=== PATIENT | female | born 1970 | race Caucasian/White ===

== ENCOUNTER 2018-05-28 11:31 | Emergency (ER) | payer BC ==
[2018-05-28] MEDS ORDERED: predniSONE 50 MG TAB PO STA (12:08)
[2018-05-28] MEDS ORDERED: MORPHINE SULFATE 4 MG/ML SYRINGE IM STA (12:08)
--- NOTE | 2018-05-28 12:17 | ED ---
General Adult HPI - General Chief complaint: Back Pain/Injury Stated complaint: back pain Time Seen by Provider: 05/28/18 11:54 Source: patient, RN notes reviewed, old records reviewed Mode of arrival: ambulatory Limitations: no limitations - History of Present Illness Initial comments: 48-year-old female patient with past medical history of chronic lumbar back pain presents to ED with approximately 4 day exacerbation of lumbar back pain. Pt reports that she was walking when she began increasing pain in her right paralumbar region pt states pain radiates down her posterior leg. Patient states that this feels similar to her back pain in the past. Patient denies any recent falls or trauma, patient able to ambulate without difficulty, denies any loss of bowel and bladder control. Patient has taken Tylenol at home without relief of symptoms. [facility] and attempted to make an appointment with her primary care physician, however was unable to today. Patient presents today primarily for symptomatic relief. Patient denies other complaints. Patient states that she is not . Systemic: Pt denies fatigue, fever/chills, rash. Pt denies weakness, night sweats, weight loss. Neuro: Pt denies headache, visual disturbances, syncope or pre-syncope. HEENT: Pt denies ocular discharge or irritation, otalgia, rhinorrhea, pharyngitis or notable lymphadenopathy. Cardiopulmonary: Pt denies chest pain, SOB, heart palpitations, dyspnea on exertion. Abdominal/GI: Pt denies abdominal pain, n/v/d. : Pt denies dysuria, burning w/ urination, frequency/urgency. Denies new onset urinary or bowel incontinence. MSK: Pt denies loss of strength or function in extremities. Neuro: Pt denies new onset weakness, paresthesias. - Related Data Home Medications Medication Instructions Recorded Confirmed Baclofen [Lioresal] 10 mg PO TID 05/28/18 05/28/18 Previous Rx's Medication Instructions Recorded Cyclobenzaprine [Flexeril] 1 - 2 tab PO TID #20 tablet 05/28/18 predniSONE 50 mg PO DAILY #4 tab 05/28/18 Allergies Allergy/AdvReac Type Severity Reaction Status Date / Time NSAIDS (Non-Steroidal Allergy Anaphylaxis Verified 05/28/18 12:27 Anti-Inflamma penicillin V Allergy Itching Verified 05/28/18 12:27 sulfamethoxazole Allergy Swelling Verified 05/28/18 12:27 [From Bactrim] trimethoprim [From Bactrim] Allergy Swelling Verified 05/28/18 12:27 Review of Systems ROS Statement: Those systems with pertinent positive or pertinent negative responses have been documented in the HPI. ROS Other: All systems not noted in ROS Statement are negative. Past Medical History Additional Past Medical History / Comment(s): melanoma Past Surgical History: No Surgical Hx Reported General Exam - General Exam Comments Initial Comments: Constitutional: NAD, AOX3, Pt has pleasant affect. HEENT: NC/AT, trachea midline, neck supple, no lymphadenopathy. Posterior pharynx non erythematous, without exudates. External ears appear normal, without discharge. Mucous membranes moist. Eyes PERRLA, EOM intact. There is no scleral icterus. No pallor noted. Cardiopulmonary: RRR, no murmurs, rubs or gallops, no JVD noted. Lungs CTAB in anterior and posterior berger. No peripheral edema. Abdominal exam: Abdomen soft and non-distended. Abdomen non-tender to palpation in all 4 quadrants. Bowel sounds active in LLQ. No hepatosplenomegaly. No ecchymosis Neuro: CN II-XII grossly intact. No nuchal rigidity. MSK: 5 out of 5 strength in psoas and quadriceps muscles. 2 out of 4 reflexes, patellar and Achilles. Heel to toe walking intact. No midline cervical, thoracic, lumbar tenderness. Mild amount of right paralumbar tenderness. Right straight leg raise positive. Left straight leg raise negative. No posterior calf tenderness bilaterally, homans sign negative bilaterally. Posterior tibialis and radial pulse +2 bilaterally. Sensation intact in upper and lower extremities. Full active ROM in upper and lower extremities, 5/5 stregnth. Limitations: no limitations Course Vital Signs 05/28/18 11:36 Temperature 98.6 F Pulse Rate 91 Respiratory 18 Rate Blood Pressure 135/83 O2 Sat by Pulse 99 Oximetry Medical Decision Making - Medical Decision Making 48-year-old female patient with past medical history of chronic lumbar back pain presents to ED with approximately 4 day exacerbation of lumbar back pain. Pt reports that she was walking when she began increasing pain in her right paralumbar region pt states pain radiates down her posterior leg. Patient states that this feels similar to her back pain in the past. Patient denies any recent falls or trauma, denies warning s/sx. patient vital signs stable afebrile. Physical exam displayed: 5 out of 5 strength in psoas and quadriceps muscles. 2 out of 4 reflexes, patellar and Achilles. Heel to toe walking intact. No midline cervical, thoracic, lumbar tenderness. Mild amount of right paralumbar tenderness. Right straight leg raise positive. Left straight leg raise negative. No posterior calf tenderness bilaterally, homans sign negative bilaterally. Posterior tibialis and radial pulse +2 bilaterally. Sensation intact in upper and lower extremities. Full active ROM in upper and lower extremities, 5/5 stregnth. Lymph no lumbar spine displayed facet arthropathy without vertebral compression collapse or malalignment. Pt improved with prednisone, pain medication in ED. Pt to be dc with 4 days of prednisone, flexeril and a tylenol 3 starter pack. Pt to f/u with PCP in 1-2 days. Pt to f/ u with orthopedic consult in 1-2 days. Pt to return to ED if new signs or symptoms develop or if condition worsens in anyway. case discussed in depth with Dr. Solis. Disposition Clinical Impression: Lumbar back pain Disposition: HOME SELF-CARE Condition: Stable Instructions (If sedation given, give patient instructions): Acute Low Back Pain (ED), Chronic Back Pain (ED) Additional Instructions: Patient to adhere to previously discussed treatment plan and will take medication(s) as directed. Patient to follow up with PCP in 1-2 days. Patient to return to ED if symptoms do not improve. Prescriptions: Cyclobenzaprine [Flexeril] 1 - 2 tab PO TID #20 tablet predniSONE 50 mg PO DAILY #4 tab Is patient prescribed a controlled substance at d/c from ED?: No Referrals: Cherise Gutiérrez MD [Primary Care Provider] - 1-2 days Varun Zimmer MD [Medical Doctor] - 1-2 days Time of Disposition: 14:15
--- NOTE | 2018-05-28 13:06 | XR ---
EXAMINATION TYPE: XR lumbar spine 2 or 3V DATE OF EXAM: 05/28/2018 COMPARISON: NONE HISTORY: 48-year-old female with pain, low back pain TECHNIQUE: 3 views FINDINGS: 5 lumbar type vertebral bodies. Facet arthropathy throughout. Straightening of the normal lumbar lord osis. Vertebral body heights are maintained. Alignment preserved. IMPRESSION: Facet arthropathy without vertebral compression collapse or malalignment. Straightening of the normal lumbar lordosis could be positional or due to muscle spasm.
[2018-05-28] MEDS ORDERED: ACET/COD 300 MG/30 MG STARTER PACK 6 TAB BTL PO STA (13:47)
[2018-05-28 14:22] VITALS: BP 120/66; PULSE 71; RESP 16; TEMP 97.5
== END 2018-05-28 14:22 | disposition home or self-care (01) ==
LOC: EC 11:31
DX: M54.5 Low back pain (principal); M46.96 Unspecified inflammatory spondylopathy, lumbar region; Z85.820 Personal history of malignant melanoma of skin; Z79.899 Other long term (current) drug therapy; Z88.0 Allergy status to penicillin; Z88.1 Allergy status to other antibiotic agents; Z88.2 Allergy status to sulfonamides; Z88.6 Allergy status to analgesic agent
CPT/HCPCS: 72100; 99284; 96372; J2270; J7512

== ENCOUNTER 2022-01-13 15:49 | Emergency (ER) | payer BC ==
[2022-01-13 16:04] VITALS: BP 126/77; PULSE 72; RESP 16; TEMP 98.2
--- NOTE | 2022-01-13 16:49 | ED ---
Fall HPI - General Chief Complaint: Fall Stated Complaint: [facility]-Head injury Time Seen by Provider: 01/13/22 16:34 Source: patient Mode of arrival: ambulatory - History of Present Illness Initial Comments: This patient is a 51-year-old woman who presents to have evaluation of pain to the occipital area of the head and to the right buttock area. 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 She states she lost her footing and fell backwards landing on her buttocks and then on her head. This was a hard surface. The patient did not have loss of consciousness. She states there is some localized pain in both areas. She has not had any neurologic symptoms. She specifically denies headache other than some local pain. She denies change in vision, hearing, speech. No neck pain. No neurologic symptoms. The patient states she had gone to an [facility] for clearance, but they referred her here as they "do not handle head injuries" MD Complaint: fall Onset/Timin -: hour(s) Fall From: standing When Fall Occurred: 1-3 hours [employer] Fall Witnessed: yes, by family Place Fall Occurred: work Loss of Consciousness: none Prolonged Down Time?: no Symptoms Prior to Fall: none Location: head, buttocks Severity: moderate Quality: dull Context: tripped/slipped Associated Symptoms: headache - Related Data Home Medications Medication Instructions Recorded Confirmed Baclofen [Lioresal] 10 mg PO TID 05/28/18 05/28/18 Previous Rx's Medication Instructions Recorded Cyclobenzaprine [Flexeril] 1 - 2 tab PO TID #20 tablet 05/28/18 predniSONE 50 mg PO DAILY #4 tab 05/28/18 Allergies Allergy/AdvReac Type Severity Reaction Status Date / Time NSAIDS (Non-Steroidal Allergy Anaphylaxis Verified 05/28/18 12:27 Anti-Inflamma penicillin V Allergy Itching Verified 05/28/18 12:27 sulfamethoxazole Allergy Swelling Verified 05/28/18 12:27 [From Bactrim] trimethoprim [From Bactrim] Allergy Swelling Verified 05/28/18 12:27 Review of Systems ROS Statement: Those systems with pertinent positive or pertinent negative responses have been documented in the HPI. ROS Other: All systems not noted in ROS Statement are negative. Constitutional: Denies: fever, chills, weakness Eyes: Denies: eye pain, vision change ENT: Denies: ear pain, hearing loss, congestion Respiratory: Denies: cough, dyspnea Cardiovascular: Denies: chest pain, palpitations, syncope Gastrointestinal: Denies: abdominal pain, nausea, vomiting Musculoskeletal: Denies: back pain Skin: Denies: rash Neurological: Reports: headache. Denies: weakness, numbness, paresthesias, confusion, abnormal gait, vertigo Hematological/Lymphatic: Denies: easy bleeding Past Medical History Additional Past Medical History / Comment(s): melanoma History of Any Multi-Drug Resistant Organisms: None Reported Past Surgical History: No Surgical Hx Reported Past Psychological History: No Psychological Hx Reported Smoking Status: Never smoker Past Alcohol Use History: None Reported Past Drug Use History: None Reported General Exam Limitations: no limitations General appearance: alert, in no apparent distress Head exam: Present: normocephalic, other (Approximate 2-1/2 cm hematoma near the occiput of the scalp. There is only minimal tenderness. No deformity.) Eye exam: Present: normal appearance, PERRL, EOMI, scleral icterus. Absent: conjunctival injection ENT exam: Present: TM's normal bilaterally, normal external ear exam Neck exam: Present: normal inspection, full ROM. Absent: tenderness, meningismus Extremities exam: Present: normal inspection, normal capillary refill. Absent: pedal edema, calf tenderness Back exam: Present: normal inspection. Absent: CVA tenderness (R), CVA tenderness (L), paraspinal tenderness, vertebral tenderness Neurological exam: Present: alert, oriented X3, CN II-XII intact. Absent: motor sensory deficit Skin exam: Present: warm, dry, intact, normal color. Absent: rash Course Vital Signs 01/13/22 16:01 Temperature 98.2 F Pulse Rate 72 Respiratory 16 Rate Blood Pressure 126/77 O2 Sat by Pulse 98 Oximetry Disposition Clinical Impression: Fall, Head injury, Contusion Disposition: HOME SELF-CARE Condition: Good Instructions (If sedation given, give patient instructions): Head Injury (ED), Hip Contusion (ED) Is patient prescribed a controlled substance at d/c from ED?: No Referrals: Cherise Gutiérrez MD [Primary Care Provider] - 1-2 days
== END 2022-01-13 17:25 | disposition home or self-care (01) ==
LOC: EC 15:49
DX: S00.93XA Contusion of unspecified part of head, initial encounter (principal); Z88.6 Allergy status to analgesic agent; Z88.0 Allergy status to penicillin; Z88.2 Allergy status to sulfonamides; Z88.1 Allergy status to other antibiotic agents; W01.0XXA Fall on same level from slipping, tripping and stumbling without subsequent striking against object, initial encounter
CPT/HCPCS: 99283

== ENCOUNTER → 2023-09-21 | Outpatient (CLI) | payer OTHER ==
--- NOTE | 2023-09-21 15:31 | XR ---
EXAMINATION TYPE: XR chest 2V DATE OF EXAM: 09/21/2023 COMPARISON: NONE TECHNIQUE: PA and lateral views submitted. HISTORY: Pain FINDINGS: The lungs are clear and there is no pneumothorax, pleural effusion, or focal pneumonia. Borderline c ardiomegaly but no overt failure. Biapical pleural thickening.. IMPRESSION: 1. No acute process.
--- NOTE | 2023-09-21 15:37 | XR ---
EXAMINATION TYPE: XR sternum DATE OF EXAM: 09/21/2023 COMPARISON: NONE HISTORY: Pain TECHNIQUE: 2 views submitted FINDINGS: A limited assessment of the sternum. A grossly intact. No definite fracture. If there is po int tenderness correlate with CT scan. IMPRESSION: Exam demonstrates no definite acute fracture. Given limitation of the exam if there is po int tenderness follow up CT scan would be recommended.
== END | disposition home or self-care (01) ==
LOC: RADXRMAIN 14:46
PROVIDERS: ATTEND Emergency Medicine
DX: R07.9 Chest pain, unspecified (principal)
CPT/HCPCS: 71046; 71120